=== PATIENT | female | born 1970 | race Caucasian/White ===

== ENCOUNTER 2022-11-17 01:45 | Emergency (ER) | payer SELFPAY ==
--- NOTE | ~2022-11-17 | XR_ITS ---
XR chest 2V DATE: 11/17/2022 02:09 INDICATION: Left-sided chest pain. Dizziness. TECHNIQUE: PA and lateral views COMPARISON: None FINDINGS: Normal heart size. No hilar or mediastinal enlargement. No pulmonary infiltrate or consolid ation, pleural effusion or pulmonary vascular congestion or pneumothorax. IMPRESSION: No active cardiopulmonary disease Reviewed, dictated and finalized at location A.
[2022-11-17 01:42] VITALS: BP 130/73; PULSE 105; RESP 18; TEMP 36.6; O2SAT 99
--- NOTE | 2022-11-17 01:51 | ECG_ITS ---
Measurements Intervals [place] Rate: 112 P: 59 [place]: 152 QRS: 64 QRSD: 88 T: -38 QT: 327 QTc: 447 Interpretive Statements SINUS TACHYCARDIA POSSIBLE LEFT ATRIAL ENLARGEMENT [-0.1mV P WAVE IN V1/V2] ST DEVIATION AND MODERATE T-WAVE ABNORMALITY, CONSIDER ISCHEMIA INFEROLATERAL LEADS ABNORMAL ECG NO PREVIOUS ECG AVAILABLE FOR COMPARISON Electronically Signed On 11-17-2022 15:23:35 CDT by Joss Morales M.D.
[2022-11-17 02:00] VITALS: PULSE 109; RESP 18; O2SAT 100
[2022-11-17 02:02] VITALS: BP 128/99
[2022-11-17 02:04] VITALS: O2SAT 100
[2022-11-17 02:05] LABS: Basophils Percent Auto 0.4 % (0.2-1.2); Eosinophils Percent Auto 0.1 % (0-4.4); Hematocrit 42.9 % (37.0-47.0); Hemoglobin 14.5 g/dL (12.0-15.0); Immature Granulocyte Absolute 0.04 K/mm3 (0.00-0.031); Immature Granulocyte Percent A 0.4 % (0-0.5); Lymphocytes Absolute Auto 1.51 K/mm3 (0.9-3.2); Lymphocytes Percent Auto 14.5 % (18.3-44.2); Mean Corpuscular HGB Conc 33.8 g/dl (32-36); Mean Corpuscular Hemoglobin 29.7 pg (26-34); Mean Corpuscular Volume 87.7 fl (80-100); Mean Platelet Volume 10.3 fl (7.4-10.4); Monocytes Absolute Auto 0.4 K/mm3 (0.1-0.6); Monocytes Percent Auto 3.6 % (2.6-8.5); Neutrophils Absolute Auto 8.5 K/mm3 (1.3-6.7); Platelet Count Result 298 k/mm3 (150-375); Red Blood Count 4.89 M/mm3 (4.2-5.4); Red Cell Distribution Width 12.3 % (11.5-14.5); White Blood Count 10.4 K/mm3 (4.5-10.0)
[2022-11-17 02:16] LABS: Alanine Aminotransferase 18 U/L (6-35); Albumin Level 4.6 g/dL (3.5-5.1); Alkaline Phosphatase 73 U/L (38-126); Anion Gap 14 mmol/L (8-16); Aspartate Amino Transferase 21 U/L (14-36); Bilirubin,Total 0.7 mg/dL (0.2-1.3); Blood Urea Nitrogen 11 mg/dL (7-17); Calcium 9.1 mg/dL (8.4-10.2); Carbon Dioxide 20 mmol/L (22-30); Chloride 104 mmol/L (98-107); Estimated CRCL calculation 76 ml/min; Estimated Glomerular Filt Rate > 60; Glucose 133 mg/dL (65-110); Potassium 3.4 mmol/L (3.4-5.0); Sodium 138 mmol/L (137-145)
[2022-11-17 02:17] VITALS: PULSE 108; RESP 13; O2SAT 97
[2022-11-17 02:18] LABS: Partial Thromboplastin Time 27.5 SECONDS (22.3-36.8)
[2022-11-17 02:27] LABS: Troponin I < 0.012 ng/mL (0.000-0.034)
[2022-11-17 02:41] LABS: NT Pro B Type Natriuretic Pept 94 pg/mL (19.9-100)
[2022-11-17 02:45] LABS: Prothrombin Time 13.2 Seconds (11.1-14.7)
[2022-11-17 02:52] LABS: D Dimer 0.95 ug/mL (<0.48)
[2022-11-17 03:00] VITALS: PULSE 104; RESP 22; O2SAT 97
--- NOTE | 2022-11-17 03:12 | ED.GENADULT ---
HPI - General Adult General Chief complaint: Chest Pain Stated complaint: chest pain Time Seen by Provider: 11/17/22 01:49 History of Present Illness HPI narrative: This is a 51-year-old female with a history of brain bleed and ischemic stroke presenting to ED with left-sided pain. She says that at 9:30 p.m. while she was lying bed she had a sharp pain shoot down her shoulder into the left side of her chest down into her left upper abdomen. It was 10/10 in intensity. Sudden onset but is improving. She has never had pain like this before. It is better when she holds her left arm to her body. It feels better when she rolls around. 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 She has weakness on the left side at baseline of the arm and the leg. Patient is denying chest pain, increased weakness, difficulty breathing abdominal pain nausea vomiting or diarrhea. [facility] Past Medical History Medical History Hemiplegia Hemorrhagic stroke Ischemic stroke Exam Narrative: APPEARANCE: No apparent distress. Head: atraumatic. EYES: EOMI, NOSE: Atraumatic NECK: Trachea midline RESPIRATORY: No increased rate of breathing , clear to auscultation CARDIOVASCULAR: RRR, equal pulses in all extremities ABDOMINAL: Non-distended MUSCULOSKELETAl: No obvious deformities NEURO: Alert. left-sided weakness -chronic, strength intact in the right side SKIN:: Warm, dry. Normal color PSYCHIATRIC: Normal affect Course Vital Signs Vital signs: Vital Signs Temperature 97.9 F 11/17/22 01:42 Pulse Rate 105 H 11/17/22 01:42 Respiratory Rate 18 11/17/22 01:42 Blood Pressure 130/73 11/17/22 01:42 Pulse Oximetry 99 11/17/22 01:42 Temperature 97.9 F 11/17/22 01:42 Pulse Rate 105 H 11/17/22 01:42 Respiratory Rate 18 11/17/22 01:42 Blood Pressure 130/73 11/17/22 01:42 Pulse Oximetry 100 11/17/22 02:04 Oxygen Delivery Room Air 11/17/22 02:04 Medical Decision Making [facility] Narrative Medical decision making narrative: -Presentation: this is a 51-year-old female with history of stroke and left-sided weakness presenting ED with sharp shooting pains down the left side of her body. She has reproducible point tenderness in the left pectoral muscle on the left side. Given the patient's history of vascular injuries I have ordered a CTA of the chest abdomen pelvis to evaluate for PE and dissection. Order CT head to make sure she is not having another spontaneous stroke. Patient given pain control. While the patient was initially agreeable to the workup she has now decided that she does not want a CTA. She says she is feeling better and would like to go home. I explained that her condition could worsen up to and including and she has verbalized her understanding. -DDX includes but is not limited to: Muscle spasm, pulmonary embolism, aortic dissection, neuropathic pain -Co-morbidities complicating care: history of ischemic and hemorrhagic CVA, left-sided hemiplegia -Social determinants of health: lives with her mother and father. Disabled -External Chart Review: none -Hx from independent Sources: none -Discussion of Management/Consultants: none -Independent interpretation of studies: CBC was within normal limits. Metabolic panel was normal. Troponin was negative. BNP was negative D-dimer was elevated at 0.95. CTA is of the chest and pelvis pending. -Dx tests considered but not ordered: -Procedures: -Interventions: Superior 12/12/2024 -Shared decision making / Disposition: While the patient was initially agreeable to the workup she has now decided that she does not want a CTA or CT of the head. She says she is feeling better and would like to go home. I explained that her condition could worsen up to and including and she has verbalized her unde
[2022-11-17] MEDS: HYDROcodone/acetaminophen (*CRX) 5-325 MG TABLET 1 TAB PO (03:21)
== END 2022-11-17 03:51 | disposition left against medical advice (07) ==
PROVIDERS: Emergency Provider Emergency Medicine; PCP Emergency Medicine
DX: R07.89 Other chest pain (principal); I69.354 Hemiplegia and hemiparesis following cerebral infarction affecting left non-dominant side
CPT/HCPCS: 36415; 71046; 80053; 81025; 83880; 84484; 85025; 85380; 85610; 85730; 93005; 99284; A9270